=== PATIENT | female | born 2000 | race Caucasian/White ===

== ENCOUNTER 2019-10-04 12:29 | Emergency (ER) | payer SELFPAY ==
[~2019-10-04] VITALS: Ht 165.1 cm; Wt 91.0 kg
[2019-10-04] MEDS ORDERED: IBUPROFEN 600MG TABLET PO ONE (12:45)
[2019-10-04 14:15] VITALS: BP 128/85
== END 2019-10-04 14:15 | disposition home or self-care (01) ==
LOC: ER 12:29
DX: S93.492A Sprain of other ligament of left ankle, initial encounter (principal); W50.2XXA Accidental twist by another person, initial encounter; Y93.89 Activity, other specified; Y92.89 Other specified places as the place of occurrence of the external cause; Y99.8 Other external cause status
CPT/HCPCS: 73610; 99283

== ENCOUNTER 2022-07-13 10:29 | Emergency (ER) | payer MEDICAID ==
[~2022-07-13] VITALS: Ht 162.6 cm; Wt 79.5 kg
[2022-07-13 10:44] VITALS: BP 126/74
[2022-07-13] MEDS ORDERED: FAMOTIDINE 20MG TABLET PO ONE (11:00)
[2022-07-13] MEDS ORDERED: DIPHENHYDRAMINE 25MG CAPSULE PO ONE (11:00)
[2022-07-13] MEDS ORDERED: METHYLPREDNISOLONE SOD SUCC 125 MG/2 ML VIAL IM ONE (11:00)
[2022-07-13] MEDS ORDERED: P20 PO (11:43)
[2022-07-13] MEDS ORDERED: DIPH25CA83 PO (11:43)
== END 2022-07-13 11:52 | disposition home or self-care (01) ==
LOC: ER 10:29
DX: T78.40XA Allergy, unspecified, initial encounter (principal); X58.XXXA Exposure to other specified factors, initial encounter
CPT/HCPCS: 81025; 96372; 99283; J2930; Q0163